=== PATIENT | female | born 1970 | race Caucasian/White ===

== ENCOUNTER → 2023-04-01 13:20 | Outpatient (REF) | payer OTHER, SELFPAY ==
--- NOTE | 2023-04-01 13:31 | ECG_ITS ---
Test Reason : bradycardia Blood Pressure : / mmHG Vent. Rate : 048 BPM Atrial Rate : 048 BPM P-R Int : 180 ms QRS Dur : 078 ms QT Int : 484 ms P-R-T Axes : 026 046 037 degrees QTc Int : 432 ms Sinus bradycardia Low voltage QRS Nonspecific ST and T wave abnormality Abnormal ECG When compared with ECG of 18-FEB-2020 19:40, Vent. rate has decreased BY 50 BPM Referred By: Meron Hill Electronically Signed By:BUFFY ARCHER
== END ==
LOC: HO.CARD 13:20
PROVIDERS: Visit Provider Counselor Addiction (Substance Use Disorder)
DX: Z79.899 Other long term (current) drug therapy (principal)
CPT/HCPCS: 93005

== ENCOUNTER 2024-02-29 13:33 | Outpatient (REF) | payer OTHER, SELFPAY ==
[2024-03-03 06:43] LABS: TS Negative Control Passed; TS Panel A 0; TS Panel B 1; TS Positive Control Passed; TSpotTB Negative (Negative)
== END 2024-02-29 13:34 | disposition home or self-care (01) ==
LOC: HO.LAB 13:33
PROVIDERS: Visit Provider Nurse Practitioner Family
DX: Z11.1 Encounter for screening for respiratory tuberculosis (principal)
CPT/HCPCS: 36415; 86481

== ENCOUNTER → 2025-09-03 09:48 | Outpatient (REF) | payer OTHER, SELFPAY ==
--- NOTE | 2025-09-03 09:57 | ECG_ITS ---
Test Reason : PROLONGED QT Blood Pressure : */* mmHG Vent. Rate : 39 BPM Atrial Rate : 39 BPM P-R Int : 190 ms QRS Dur : 80 ms QT Int : 526 ms P-R-T Axes : 43 52 47 degrees QTcB Int : 423 ms Marked sinus bradycardia Nonspecific ST and T wave abnormality Abnormal ECG When compared with ECG of 01-Apr-2023 13:33, No significant change was found Referred By: TING MIMS Electronically Signed By: Bhargav Frankel
== END ==
LOC: HO.CARD 09:48
PROVIDERS: PCP Physician Assistant; Visit Provider Nurse Practitioner Family
DX: Z51.81 Encounter for therapeutic drug level monitoring (principal)
CPT/HCPCS: 93005

== ENCOUNTER → 2025-09-03 09:57 | Outpatient (BNV) | payer OTHER, SELFPAY | PROVIDERS: PCP Physician Assistant; Visit Provider Internal Medicine Cardiovascular Disease | DX: R00.1 Bradycardia, unspecified (principal) | CPT/HCPCS: 93010 ==